=== PATIENT | female | born 1955 | race Caucasian/White ===

== ENCOUNTER 2022-06-14 00:42 | Inpatient (IN) ==
[2022-06-14] MEDS ORDERED: *HR* EPINEPHrine 100 MCG/10 ML SYRINGE IVP ONE (01:14)
[2022-06-14] MEDS ORDERED: Iopamidol - 370 500 ML MLS IVP ONE (01:14)
[2022-06-14 01:22] LABS: ABG Base Excess -20 mEq/L (-2 to 3); ABG HCO3 10 mEq/L (21-27); ABG Oxygen Saturation 89 % (95-98); ABG PCO2 44 mmHg (35-45); ABG PH 6.97 pH Units (7.32-7.45); ABG PO2 86 mmHg (85-104); ABG TCO2 11 mEq/L (20-26); Blood Gas Modality ASSIST CONTROL; Blood Gas VT 500 cc
[2022-06-14 01:31] LABS: Hematocrit 23.5 % (35.3-44.9); Hemoglobin 6.4 g/dL (11.5-15.4); Mean Corpuscular HGB Conc 27.2 g/dL (31.6-35.5); Mean Corpuscular Hemoglobin 25.2 pg (28.0-33.3); Mean Corpuscular Volume 92.5 fL (83.0-100.0); Mean Platelet Volume 10.4 fL (9.4-12.4); Nucleated Red Blood Cells 0.2 /100 WBC (0); Platelet Count 371 K/mcL (140-400); Red Blood Count 2.54 M/mcL (3.82-4.97); Red Cell Distribution Width 17.5 % (11.5-14.5); White Blood Count 17.2 K/mcL (4.3-11.1)
[2022-06-14] MEDS: 0.9 % Sodium Chloride 1,000 ML IVC SCH ×2 (01:35→02:44)
[2022-06-14] MEDS ORDERED: cefTRIAXone 1,000 MG in 0.9 % Sodium Chloride 10 ML IVP ONE (01:42)
[2022-06-14 01:45] LABS: Amphetamine Screen,Urine Negative ng/mL (Cutoff=1000); Barbiturate Screen,Urine Negative ng/mL (Cutoff=200); Benzodiazepines Screen,Urine Negative ng/mL (Cutoff=200); Cannabinoid Screen,Urine Negative ng/mL (Cutoff = 50); Cocaine Screen,Urine Negative ng/mL (Cutoff= 300); Opiate Screen,Urine Negative ng/mL (Cutoff=300); Phencyclidine Screen,Urine Negative ng/mL (Cutoff=25)
[2022-06-14 01:58] LABS: Bilirubin,Urine Negative (Negative); Blood,Urine Negative (Negative); Clarity,Urine Ex.Turbid (Clear); Color,Urine Yellow (Yellow); Glucose,Urine (UA) 200 mg/dL (Normal); Ketones,Urine Negative (Negative); Leukocyte Esterase,Urine Negative (Negative); Mucus,Urine Few per lpf (None-Few); Nitrite,Urine Negative (Negative); Protein,Urine >=600 mg/dL (Neg-Trace); RBC,Urine 0-3 per hpf (0-3); Specific Gravity,Urine 1.023 (1.010-1.025); Squamous Epithelial Cell,Urine Moderate per hpf (None-Few); Urobilinogen,Urine Normal (Normal)
[2022-06-14 02:09] LABS: Albumin 2.8 g/dL (3.5-5.7); Albumin/Globulin Ratio 0.8 (1.1-2.2); Bilirubin,Total 0.4 mg/dL (0.3-1.0); Calcium 9.2 mg/dL (8.6-10.3); Globulin 3.4 g/dL (2.4-3.5); Magnesium 2.4 mg/dL (1.6-2.6); Potassium 6.3 mEq/L (3.5-5.1); Total Protein 6.2 g/dL (6.4-8.9); Troponin I 0.36 ng/mL (< 0.04)
[2022-06-14] MEDS: EPINEPHrine 5 MG in D5% in Water 250 ML IVC SCH ×3 (02:14→17:18)
[2022-06-14 02:16] LABS: Eosinophils # 0.3 K/mcL (0.0-0.6); Lymphocytes # 7.6 K/mcL (0.6-4.6); Monocytes # 0.7 K/mcL (0.0-1.3); Neutrophils # 8.6 K/mcL (1.6-8.9)
[2022-06-14] MEDS ORDERED: Albuterol 2.5 MG/3 ML NEBULIZER IH ONE (02:19)
[2022-06-14 04:43] LABS: Influenza A PCR Negative (Negative); Influenza B PCR Negative (Negative); Resp. Syncytial Virus PCR Negative (Negative)
[2022-06-14 05:04] LABS: SARS-CoV-2 by PCR (In House) Negative (Negative)
[2022-06-14 05:46] LABS: ABG Base Excess -23 mEq/L (-2 to 3); ABG HCO3 5 mEq/L (21-27); ABG Oxygen Saturation 95 % (95-98); ABG PCO2 18 mmHg (35-45); ABG PH 7.05 pH Units (7.32-7.45); ABG PO2 103 mmHg (85-104); ABG TCO2 6 mEq/L (20-26)
[2022-06-14] MEDS ORDERED: Naloxone 0.4 MG/ML INJ IVP PRN (06:31)
[2022-06-14] MEDS ORDERED: Artificial Tears SOLN 15 ML BOTTLE BOTH EYES PRN (06:35)
[2022-06-14] MEDS ORDERED: *HR* Heparin 5,000 UNIT/ML VIAL IVP PRN ×3 (06:37→09:19)
[2022-06-14] MEDS: D5% in 0.9% NACL 1,000 ML IVC SCH ×2 (06:39→19:51)
[2022-06-14] MEDS ORDERED: Heparin 25,000UNIT/250ML 1/2NS 25,000 UNIT/250 ML IV.SOLN IVC SCH (06:45)
[2022-06-14] MEDS ORDERED: Perflutren Lipid Microsphere 1.3 ML in 0.9 % Sodium Chloride 8.7 ML IVP PRN (06:55)
[2022-06-14] MEDS ORDERED: 0.9 % Sodium Chloride 1,000 ML IVC ONE (06:55)
[2022-06-14 08:11] LABS: ABG Base Excess -24 mEq/L (-2 to 3); ABG HCO3 5 mEq/L (21-27); ABG Oxygen Saturation 93 % (95-98); ABG PCO2 21 mmHg (35-45); ABG PH 7.01 pH Units (7.32-7.45); ABG PO2 99 mmHg (85-104); ABG TCO2 6 mEq/L (20-26); Blood Gas Modality ASSIST CONTROL; Blood Gas VT 500 cc
[2022-06-14] MEDS ORDERED: *HR* LORazepam 2 MG/ML VIAL IVP ONE (08:40)
[2022-06-14] MEDS ORDERED: *HR* LORazepam 2 MG/ML VIAL ONE (08:48)
[2022-06-14] MEDS: Sodium Bicarbonate 150 MEQ in Water for inj. (sterile) 1,000 ML IVC SCH ×2 (08:52→19:51)
[2022-06-14] MEDS: Artificial Tears SOLN 15 ML BOTTLE BOTH EYES SCH ×5 (08:58→23:19)
[2022-06-14] MEDS ORDERED: SODIUM ZIRCONIUM CYCLOSILICATE 5 GM POWD.PACK PO SCH (09:00)
[2022-06-14] MEDS ORDERED: Calcium Gluconate 1gm/50mL 1 GM/50 ML BAG IVPB PRN (09:19)
[2022-06-14] MEDS: FentaNYL (PF) 1,000 MCG/100 ML IV.SOLN IVC SCH ×2 (09:30→22:50)
[2022-06-14 10:33] LABS: VBG Ionized Calcium 0.95 mmol/L (1.15-1.35)
[2022-06-14] MEDS: Chlorhexidine Rinse 15 ML MOUTHWASH MM SCH ×2 (10:41→20:34)
[2022-06-14] MEDS: Pantoprazole 40 MG VIAL IVP SCH (10:41)
[2022-06-14 10:42] LABS: Mean Corpuscular Volume 91.7 fL (83.0-100.0); Mean Platelet Volume 10.4 fL (9.4-12.4)
[2022-06-14 10:43] LABS: Hematocrit 24.4 % (35.3-44.9); Hemoglobin 6.7 g/dL (11.5-15.4); Mean Corpuscular HGB Conc 27.5 g/dL (31.6-35.5); Mean Corpuscular Hemoglobin 25.2 pg (28.0-33.3); Nucleated Red Blood Cells 0.1 /100 WBC (0); Platelet Count 343 K/mcL (140-400); Red Blood Count 2.66 M/mcL (3.82-4.97); Red Cell Distribution Width 17.3 % (11.5-14.5)
[2022-06-14 10:55] LABS: INR 1.3; Prothrombin Time 14.4 Seconds (9.4-12.1); White Blood Count 33.8 K/mcL (4.3-11.1)
[2022-06-14 10:57] LABS: Potassium 3.8 mEq/L (3.5-5.1)
[2022-06-14 10:59] LABS: Albumin 2.6 g/dL (3.5-5.7); Albumin/Globulin Ratio 0.7 (1.1-2.2); Bilirubin,Direct 0.1 mg/dL (0.0-0.2); Bilirubin,Indirect 0.2 mg/dL (0.0-1.0); Bilirubin,Total 0.3 mg/dL (0.3-1.0); Globulin 3.6 g/dL (2.4-3.5); Phosphorous 8.5 mg/dL (2.7-4.5); Total Protein 6.2 g/dL (6.4-8.9); Troponin I 0.49 ng/mL (< 0.04)
[2022-06-14] MEDS ORDERED: Calcium Gluconate 1gm/50mL 1 GM/50 ML BAG IVPB ONE (10:59)
[2022-06-14] MEDS ORDERED: Vancomycin 2,000 MG/520 ML IV.SOLN IVPB ONE (10:59)
[2022-06-14] MEDS ORDERED: Vancomycin 1,750 MG in 0.9 % Sodium Chloride 250 ML IVPB SCH (11:00)
[2022-06-14 11:04] LABS: Activated Partial Thrombo Time 32.5 Seconds (26.0-36.0)
[2022-06-14 11:05] LABS: Thyroid Stimulating Hormone 14.943 mcIU/mL (0.340-5.600)
[2022-06-14] MEDS: 0.9 % Sodium Chloride 1,000 ML PRIME SCH ×4 (11:10→20:31)
[2022-06-14] MEDS: SODIUM CITRATE 500 ML CRRT SCH ×4 (11:23→22:51)
[2022-06-14] MEDS: Calcium Chloride 4,000 MG in 0.9 % Sodium Chloride 1,000 ML CRRT SCH (11:24)
[2022-06-14] MEDS: PrismaSATE BGK 4/2.5 5,000 ML CRRT SCH ×8 (11:24→21:45)
[2022-06-14 11:32] LABS: Monocytes # 0.7 K/mcL (0.0-1.3); Neutrophils # 31.1 K/mcL (1.6-8.9); Platelet Estimate Increased (Normal)
[2022-06-14 11:33] LABS: Anisocytosis 1+ (Not Present); Hypochromasia Present (Not Present); Poikilocytosis 1+ (Not Present)
[2022-06-14] MEDS: Piperacillin/Tazobactam 3.375 GM in 0.9 % Sodium Chloride Mini Bag 100 ML IVPB SCH ×3 (11:48→23:12)
[2022-06-14] MEDS: Norepinephrine 4 MG/254 ML IV.SOLN IVC SCH ×2 (12:04→20:29)
[2022-06-14 12:35] LABS: ABG Base Excess -13 mEq/L (-2 to 3); ABG HCO3 13 mEq/L (21-27); ABG Oxygen Saturation 95 % (95-98); ABG PCO2 29 mmHg (35-45); ABG PH 7.27 pH Units (7.32-7.45); ABG PO2 82 mmHg (85-104); ABG TCO2 14 mEq/L (20-26); Blood Gas Modality ASSIST CONTROL; Blood Gas VT 500 cc
[2022-06-14 13:33] LABS: Calcium 7.5 mg/dL (8.6-10.3); Potassium 3.8 mEq/L (3.5-5.1)
[2022-06-14 13:38] LABS: VBG Ionized Calcium 0.85 mmol/L (1.15-1.35)
[2022-06-14] MEDS: Calcium Gluconate 1gm/50mL 1 GM/50 ML BAG IVPB PRN ×6 (13:42→23:42)
[2022-06-14 13:53] LABS: Troponin I 0.57 ng/mL (< 0.04)
[2022-06-14] MEDS ORDERED: Ondansetron 4 MG/2 ML VIAL IVP ONE (15:07)
[2022-06-14] MEDS: *HR* LORazepam 2 MG/ML VIAL IVP PRN ×2 (15:16→20:48)
[2022-06-14] MEDS ORDERED: *HR* EPINEPHrine 10 MG/10 ML MDV IVC ONE (15:27)
[2022-06-14] MEDS ORDERED: *HR* Atropine Sulfate 1 MG/10 ML SYRINGE IV ONE (15:27)
[2022-06-14 15:29] LABS: VBG Ionized Calcium 0.88 mmol/L (1.15-1.35)
[2022-06-14] MEDS: Hydrocortisone Sodium Succ 100 MG/2 ML VIAL IVP SCH ×2 (15:37→23:12)
[2022-06-14] MEDS ORDERED: Levothyroxine Sodium 100 MCG VIAL IVP ONE (15:45)
[2022-06-14 17:54] LABS: VBG Ionized Calcium 0.96 mmol/L (1.15-1.35)
[2022-06-14 18:18] LABS: ABG Base Excess -7 mEq/L (-2 to 3); ABG HCO3 17 mEq/L (21-27); ABG Oxygen Saturation 99 % (95-98); ABG PCO2 24 mmHg (35-45); ABG PH 7.45 pH Units (7.32-7.45); ABG PO2 142 mmHg (85-104); ABG TCO2 17 mEq/L (20-26); Blood Gas Modality ASSIST CONTROL; Blood Gas VT 500 cc
[2022-06-14 19:11] LABS: VBG Ionized Calcium 0.98 mmol/L (1.15-1.35)
[2022-06-14] MEDS ORDERED: 0.9 % Sodium Chloride 1,000 ML PRIME PRN (19:54)
[2022-06-14 19:55] LABS: Basophils % 0.1 %; Hematocrit 20.4 % (35.3-44.9); Hemoglobin 6.3 g/dL (11.5-15.4); Immature Granulocytes % 1.2 % (0-4); Lymphocytes # 1.7 K/mcL (0.6-4.6); Lymphocytes % 7.3 %; Mean Corpuscular HGB Conc 30.9 g/dL (31.6-35.5); Mean Corpuscular Volume 84.3 fL (83.0-100.0); Mean Platelet Volume 9.9 fL (9.4-12.4); Monocytes # 0.7 K/mcL (0.0-1.3); Monocytes % 2.8 %; Neutrophils # 20.7 K/mcL (1.6-8.9); Nucleated Red Blood Cells 0.3 /100 WBC (0); Platelet Count 255 K/mcL (140-400); Red Blood Count 2.42 M/mcL (3.82-4.97); Segmented Neutrophils % 88.6 %; White Blood Count 23.4 K/mcL (4.3-11.1)
[2022-06-14 21:18] LABS: ABG Base Excess -3 mEq/L (-2 to 3); ABG HCO3 21 mEq/L (21-27); ABG Oxygen Saturation 100 % (95-98); ABG PCO2 28 mmHg (35-45); ABG PH 7.48 pH Units (7.32-7.45); ABG PO2 148 mmHg (85-104); ABG TCO2 22 mEq/L (20-26); Blood Gas Modality ASSIST CONTROL; Blood Gas VT 500 cc
[2022-06-14 21:34] LABS: VBG Ionized Calcium 0.93 mmol/L (1.15-1.35)
[2022-06-14] MEDS ORDERED: *HR* Dextrose 50 % in Water (Syg) 50 ML SYRINGE ONE (23:12)
[2022-06-14] MEDS ORDERED: *HR* Dextrose 50 % in Water (Syg) 50 ML SYRINGE IVP PRN (23:12)
[2022-06-14 23:22] LABS: VBG Ionized Calcium 0.93 mmol/L (1.15-1.35)
[2022-06-15] MEDS: PrismaSATE BGK 4/2.5 5,000 ML CRRT SCH ×10 (01:15→15:07)
[2022-06-15] MEDS: Calcium Chloride 4,000 MG in 0.9 % Sodium Chloride 1,000 ML CRRT SCH ×3 (01:16→15:51)
[2022-06-15 01:30] LABS: VBG Ionized Calcium 0.91 mmol/L (1.15-1.35)
[2022-06-15] MEDS: D10% in Water 500 ML IVC SCH ×2 (01:34→15:07)
[2022-06-15] MEDS: Calcium Gluconate 1gm/50mL 1 GM/50 ML BAG IVPB PRN ×4 (01:41→08:27)
[2022-06-15 03:33] LABS: VBG Ionized Calcium 0.89 mmol/L (1.15-1.35)
[2022-06-15 03:40] LABS: Basophils % 0.1 %; Hematocrit 20.6 % (35.3-44.9); Hemoglobin 6.2 g/dL (11.5-15.4); Immature Granulocytes % 0.7 % (0-4); Lymphocytes # 1.9 K/mcL (0.6-4.6); Lymphocytes % 10.6 %; Mean Corpuscular HGB Conc 30.1 g/dL (31.6-35.5); Mean Corpuscular Hemoglobin 25.1 pg (28.0-33.3); Mean Corpuscular Volume 83.4 fL (83.0-100.0); Monocytes # 0.7 K/mcL (0.0-1.3); Monocytes % 3.8 %; Neutrophils # 15.4 K/mcL (1.6-8.9); Nucleated Red Blood Cells 0.4 /100 WBC (0); Platelet Count 209 K/mcL (140-400); Red Blood Count 2.47 M/mcL (3.82-4.97); Red Cell Distribution Width 17.1 % (11.5-14.5); Segmented Neutrophils % 84.8 %; White Blood Count 18.1 K/mcL (4.3-11.1)
[2022-06-15] MEDS: Artificial Tears SOLN 15 ML BOTTLE BOTH EYES SCH ×6 (03:47→23:19)
[2022-06-15 04:00] LABS: Albumin 2.5 g/dL (3.5-5.7); Albumin/Globulin Ratio 0.8 (1.1-2.2); Bilirubin,Direct 0.1 mg/dL (0.0-0.2); Bilirubin,Indirect 0.2 mg/dL (0.0-1.0); Bilirubin,Total 0.3 mg/dL (0.3-1.0); Calcium 8.8 mg/dL (8.6-10.3); Globulin 3.3 g/dL (2.4-3.5); Magnesium 1.8 mg/dL (1.6-2.6); Phosphorous 2.4 mg/dL (2.7-4.5); Potassium 4.1 mEq/L (3.5-5.1); Total Protein 5.8 g/dL (6.4-8.9)
[2022-06-15 04:05] LABS: Troponin I 1.99 ng/mL (< 0.04)
[2022-06-15] MEDS: SODIUM CITRATE 500 ML CRRT SCH ×5 (05:12→15:34)
[2022-06-15 05:27] LABS: VBG Ionized Calcium 0.95 mmol/L (1.15-1.35)
[2022-06-15 05:36] LABS: ABG Base Excess 4 mEq/L (-2 to 3); ABG HCO3 26 mEq/L (21-27); ABG Oxygen Saturation 98 % (95-98); ABG PCO2 31 mmHg (35-45); ABG PH 7.53 pH Units (7.32-7.45); ABG PO2 93 mmHg (85-104); ABG TCO2 27 mEq/L (20-26); Blood Gas Modality ASSIST CONTROL; Blood Gas VT 450 cc
[2022-06-15] MEDS: *HR* LORazepam 2 MG/ML VIAL IVP PRN ×3 (05:38→21:49)
[2022-06-15] MEDS: Piperacillin/Tazobactam 3.375 GM in 0.9 % Sodium Chloride Mini Bag 100 ML IVPB SCH ×3 (07:21→23:27)
[2022-06-15] MEDS: Hydrocortisone Sodium Succ 100 MG/2 ML VIAL IVP SCH ×2 (07:22→15:35)
[2022-06-15 07:31] LABS: VBG Ionized Calcium 0.96 mmol/L (1.15-1.35)
[2022-06-15] MEDS: Pantoprazole 40 MG VIAL IVP SCH (07:33)
[2022-06-15] MEDS: Chlorhexidine Rinse 15 ML MOUTHWASH MM SCH ×2 (07:33→20:04)
[2022-06-15] MEDS ORDERED: Levothyroxine Sodium 100 MCG VIAL IVP SCH (09:00)
[2022-06-15 09:29] LABS: VBG Ionized Calcium 1.19 mmol/L (1.15-1.35)
[2022-06-15] MEDS: Norepinephrine 4 MG/254 ML IV.SOLN IVC SCH ×2 (10:14→20:04)
[2022-06-15] MEDS: FentaNYL (PF) 1,000 MCG/100 ML IV.SOLN IVC SCH ×2 (10:17→23:27)
[2022-06-15 14:09] LABS: VBG Ionized Calcium 1.12 mmol/L (1.15-1.35)
[2022-06-15] MEDS ORDERED: Darbepoetin 100 MCG/0.5 ML SYRINGE SQ SCH (17:00)
[2022-06-15 17:30] LABS: % Iron Saturation 9 % (15-50); Iron 24 mcg/dL (50-170); Transferrin 188 mg/dL (203-362)
[2022-06-15 17:53] LABS: Ferritin > 1500 ng/mL (10-120)
[2022-06-15] MEDS: niCARdipine 20 MG/200 ML MLS IVC SCH ×2 (17:55→21:09)
[2022-06-15] MEDS: Iron Sucrose Complex 250 MG in 0.9 % Sodium Chloride 250 ML IVPB SCH (19:37)
[2022-06-16] MEDS: *HR* LORazepam 2 MG/ML VIAL IVP PRN (03:03)
[2022-06-16] MEDS: niCARdipine 20 MG/200 ML MLS IVC SCH ×4 (03:03→14:14)
[2022-06-16 03:52] LABS: Basophils % 0.1 %; Nucleated Red Blood Cells 1.6 /100 WBC (0); Red Cell Distribution Width 17.6 % (11.5-14.5)
[2022-06-16 03:53] LABS: Hematocrit 19.9 % (35.3-44.9); Lymphocytes # 3.3 K/mcL (0.6-4.6); Lymphocytes % 16.6 %; Mean Corpuscular HGB Conc 29.6 g/dL (31.6-35.5); Mean Corpuscular Volume 84.3 fL (83.0-100.0); Mean Platelet Volume 10.6 fL (9.4-12.4); Monocytes # 1.5 K/mcL (0.0-1.3); Monocytes % 7.8 %; Neutrophils # 14.6 K/mcL (1.6-8.9); Platelet Count 210 K/mcL (140-400); Red Blood Count 2.36 M/mcL (3.82-4.97); Segmented Neutrophils % 74.5 %; White Blood Count 19.6 K/mcL (4.3-11.1)
[2022-06-16 03:57] LABS: Hemoglobin 5.9 g/dL (11.5-15.4)
[2022-06-16 04:07] LABS: ABG Base Excess 5 mEq/L (-2 to 3); ABG HCO3 28 mEq/L (21-27); ABG Oxygen Saturation 96 % (95-98); ABG PCO2 31 mmHg (35-45); ABG PH 7.56 pH Units (7.32-7.45); ABG PO2 67 mmHg (85-104); ABG TCO2 28 mEq/L (20-26); Blood Gas VT 420 cc
[2022-06-16] MEDS: Artificial Tears SOLN 15 ML BOTTLE BOTH EYES SCH ×4 (04:29→15:12)
[2022-06-16] MEDS: D10% in Water 500 ML IVC SCH ×2 (04:34→16:24)
[2022-06-16 04:47] LABS: Anisocytosis 1+ (Not Present); Hypochromasia Present (Not Present); Platelet Estimate Normal (Normal)
[2022-06-16 05:06] LABS: Albumin 2.2 g/dL (3.5-5.7); Albumin/Globulin Ratio 0.8 (1.1-2.2); Bilirubin,Indirect 0.3 mg/dL (0.0-1.0); Bilirubin,Total 0.3 mg/dL (0.3-1.0); Globulin 2.9 g/dL (2.4-3.5); Magnesium 1.8 mg/dL (1.6-2.6); Phosphorous 3.1 mg/dL (2.7-4.5); Potassium 4.2 mEq/L (3.5-5.1); Thyroid Stimulating Hormone 2.326 mcIU/mL (0.340-5.600); Total Protein 5.1 g/dL (6.4-8.9)
[2022-06-16] MEDS: Piperacillin/Tazobactam 3.375 GM in 0.9 % Sodium Chloride Mini Bag 100 ML IVPB SCH ×2 (08:53→16:24)
[2022-06-16] MEDS: Pantoprazole 40 MG VIAL IVP SCH (08:55)
[2022-06-16] MEDS: Chlorhexidine Rinse 15 ML MOUTHWASH MM SCH (08:55)
[2022-06-16] MEDS ORDERED: Levothyroxine Sodium 100 MCG VIAL IVP SCH (09:00)
[2022-06-16] MEDS: Iron Sucrose Complex 250 MG in 0.9 % Sodium Chloride 250 ML IVPB SCH (09:32)
[2022-06-16 15:10] VITALS: TEMP 98.3
[2022-06-16 16:12] VITALS: BP 92/68; O2SAT 96
[2022-06-16 16:33] VITALS: PULSE 57
== END 2022-06-16 17:58 | disposition short-term general hospital (02) | DRG 280 ==
LOC: ICNU 00:42 → EMEROOARM 00:42 → ICNU 08:20
PROVIDERS: ADMIT Pediatrics; ATTEND Pediatrics